=== PATIENT | male | born 1975 | race Caucasian/White ===

== ENCOUNTER 2020-10-01 18:42 | Emergency (ER) | payer BC ==
[~2020-10-01] VITALS: Ht 188 cm; Wt 106.6 kg
[2020-10-01 18:47] VITALS: BP_SYST 143
[2020-10-01] MEDS ORDERED: HYDR-3919 PO (20:02)
[2020-10-01 20:19] VITALS: BP_SYST 143
== END 2020-10-01 20:20 | disposition home or self-care (01) ==
LOC: SED 18:42
DX: S93.692A Other sprain of left foot, initial encounter (principal); W22.8XXA Striking against or struck by other objects, initial encounter; Y93.67 Activity, basketball; Y92.89 Other specified places as the place of occurrence of the external cause; Y99.8 Other external cause status
CPT/HCPCS: 99283